=== PATIENT | male | born 1990 | race Caucasian/White ===

== ENCOUNTER 2017-10-15 16:12 | Emergency (ER) | payer BC, OTHER ==
--- NOTE | 2017-10-15 17:07 | RAD ---
LEFT FOOT THREE VIEWS: 10/15/17 HISTORY: Trauma, left foot pain. FINDINGS/IMPRESSION: There is suggestion of fractures involving the distal aspects of the fourth and fifth metatarsals. Cl inical correlation is recommended. POS: ANNMARIE
== END 2017-10-15 18:03 | disposition home or self-care (01) ==
LOC: ERS 16:12
DX: S92.342A Displaced fracture of fourth metatarsal bone, left foot, initial encounter for closed fracture (principal); S92.352A Displaced fracture of fifth metatarsal bone, left foot, initial encounter for closed fracture; F32.9 Major depressive disorder, single episode, unspecified; W11.XXXA Fall on and from ladder, initial encounter

== ENCOUNTER 2017-11-26 01:56 | Emergency (ER) | payer BC ==
[2017-11-26] MEDS ORDERED: Ondansetron ODT 4 MG TAB ONE (02:40)
[2017-11-26 02:52] LABS: #Eosinphils 0.4 thou/uL (0.0-0.7); #Lymphocytes 3.1 thou/uL (1.20-3.40); #Monocytes 0.7 thou/uL (0.11-0.59); #Neutrophils 4.2 thou/uL (1.40-6.50); %Basophils 0.3 % (0.0-1.0); %Eosinophils 4.5 % (0.0-10.0); %Lymphocytes 36.3 % (21.0-51.0); %Monocytes 8.9 % (0.0-10.0); Hemoglobin 15.4 g/dL (14.0-18.0); Mean Corpuscular HGB CONC 35.4 g/dL (32.0-36.0); Mean Corpuscular Hemoglobin 32.6 pg (27.0-31.0); Mean Corpuscular Volume 92.3 fl (80.0-94.0); Mean Platelet Volume 7.5 fL (7.4-10.4); Platelet Count 206 thou/uL (130-400); RBC Distribution Width 12.4 % (11.5-14.5); Red Blood Cell (RBC) Count 4.73 mill/uL (4.70-6.10); White Blood Cell (WBC) Count 8.4 thou/uL (4.8-10.8)
[2017-11-26 03:16] LABS: ALT (SGPT) 53 U/L (8-55); AST (SGOT) 32 U/L (5-34); Albumin 4.8 g/dL (3.5-5.0); Alkaline Phosphatase 60 U/L (40-150); Anion Gap 16 mmol/L (10-20); BUN (Urea Nitrogen) 14 mg/dL (8.9-20.6); Bilirubin, Total 0.7 mg/dL (0.2-1.2); Calc. Creatinine Clearance 0 mL/min (70-130); Calcium 9.7 mg/dL (7.8-10.44); Carbon Dioxide 22 mmol/L (22-29); Chloride 106 mmol/L (98-107); Estimated GFR-MDRD 88; Globulin 3.1 g/dL (2.4-3.5); Glucose 99 mg/dL (70-105); Lipase 32 U/L (8-78); Potassium 3.8 mmol/L (3.5-5.1); Protein, Total 7.9 g/dL (6.0-8.3); Sodium 140 mmol/L (136-145)
[2017-11-26 04:27] LABS: Bilirubin Negative (Negative); Blood, Urine Large (Negative); Clarity CLEAR (Clear); Glucose, Urine (Dipstick) Negative (Negative); Leukocyte Negative (Negative); Nitrite Negative (Negative); Protein, Urine (Dipstick) Negative (Neg-Trace); Specific Gravity, Urine 1.035 (1.002-1.036); Urobilinogen 0.2 mg/dL (0.2-1.0); pH, Urine 6.5 (5.0-9.0)
[2017-11-26 04:30] LABS: Bacteria/HPF None Seen HPF (None Seen); Hyaline Casts/LPF 0-3 HYALINE CAST LPF (0-3 Hyaline); Pathc Cast-AUWi Flag 0.14 (0-2.49); RBC/HPF 21-50 HPF (0-3); Squamous Epithelial None Seen HPF (0-3); WBC/HPF 0-3 HPF (0-3)
[2017-11-26] MEDS ORDERED: Ketorolac Tromethamine 30 MG/ML VIAL ONE (04:54)
--- NOTE | 2017-11-26 10:09 | CT ---
PRELIMINARY REPORT/[facility]/EMERGENTY AFTER-HOURS PROCEDURE CT Abdomen and Pelvis With Intravenous Contrast CLINICAL HISTORY: 27 years old, male; Pain; Abdominal pain; Generalized; Patient HX: M27 presents to ed for abdominal p ain. Upon arrival to examine PT, PT was laying on the floor. PT reports the pain began tonight and wo ke him from his sleep and is in his llq. PT denies allergies to any medications. PT reports some cons tipation, last bm saturday morning. TECHNIQUE: Axial computed tomography images of the abdomen and pelvis with intravenous contrast. Coronal reforma tted images were created and reviewed. COMPARISON: No relevant prior studies available. FINDINGS: Lower thorax: No acute findings. ABDOMEN: Liver: Normal. No mass. Gallbladder and bile ducts: Normal. No calcified stones. No ductal dilation. Pancreas: Normal. No ductal dilation. Spleen: Normal. No splenomegaly. Adrenals: Normal. No mass. Kidneys and ureters: 4 mm proximal left ureteral calculus with mild left hydroureteronephrosis. Left renal cyst in the lower pole Stomach and bowel: Normal. No obstruction. No mucosal thickening. Appendix: Normal. No findings to suggest acute appendicitis. PELVIS: Bladder: Unremarkable as visualized. Reproductive: Unremarkable as visualized. ABDOMEN and PELVIS: Intraperitoneal space: Normal. No free air. No significant fluid collection. Bones/joints: No acute fracture. No dislocation. Soft tissues: Unremarkable. Vasculature: Normal. No abdominal aortic aneurysm. Lymph nodes: Normal. No enlarged lymph nodes. IMPRESSION: Mild left obstructive uropathy secondary to a 4 mm proximal left ureteral calculus Thank you for allowing us to participate in the care of your patient. Dictated and Authenticated by: Gavin Krause MD 11/26/2017 4:40 AM Central Time ([place] & [place]) FINAL REPORT CT ABDOMEN AND PELVIS WITH IV CONTRAST PERFORMED ON AN EMERGENCY BASIS: Date: 11/26/17 Time: 0326 hours HISTORY: Abdomen pain. FINDINGS: Findings agree with the preliminary report by [facility]. There is partial obstruction at a 4.0 mm proximal to mid left ureteral calculus. POS: TPC
[2017-11-26] MEDS ORDERED: ISOVUE-370 76%-LOCM 1 ML ONE (11:20)
== END 2017-11-26 05:13 | disposition home or self-care (01) ==
LOC: ERS 01:56
DX: N13.2 Hydronephrosis with renal and ureteral calculous obstruction (principal); F32.9 Major depressive disorder, single episode, unspecified; F17.200 Nicotine dependence, unspecified, uncomplicated
CPT/HCPCS: 74177; 80053; 81003; 81015; 83690; 85025; 96361; 96374; J1885; J2270; Q0162

== ENCOUNTER 2018-01-23 07:54 | Emergency (ER) | payer BC, OTHER ==
[2018-01-23] MEDS ORDERED: Adacel (T-DAP) 0.5 ML VIAL ONE (08:05)
[2018-01-23] MEDS ORDERED: Ondansetron HCl/PF 4 MG/2 ML Vial ONE (08:09)
--- NOTE | 2018-01-23 08:41 | RAD ---
MIDDLE FINGER LEFT HAND THREE VIEWS: INDICATIONS: Injury to left middle finger with pain. FINDINGS: There is a transverse, mildly displaced fracture involving the distal aspect of the middle phalanx of the third finger. Associated soft tissue swelling. IMPRESSION: Fracture, middle phalanx, third finger, left hand. POS: KAYLYN
[2018-01-23] MEDS ORDERED: CEFAZOLIN/Water 2 GM/20 ML SYRINGE SLOW IVP SCH (08:45)
== END 2018-01-23 10:30 | disposition home or self-care (01) ==
LOC: ERS 07:54
DX: S67.193A Crushing injury of left middle finger, initial encounter (principal); S67.195A Crushing injury of left ring finger, initial encounter; S62.653A Nondisplaced fracture of middle phalanx of left middle finger, initial encounter for closed fracture; S61.213A Laceration without foreign body of left middle finger without damage to nail, initial encounter; S61.215A Laceration without foreign body of left ring finger without damage to nail, initial encounter; F17.210 Nicotine dependence, cigarettes, uncomplicated; F32.9 Major depressive disorder, single episode, unspecified; W31.89XA Contact with other specified machinery, initial encounter; Y99.0 Civilian activity done for income or pay
CPT/HCPCS: 26720; 90471; 90715; 96374; 96375; J2270; J2405

== ENCOUNTER 2018-02-07 11:39 | Day surgery (SDC) | payer OTHER ==
[2018-02-06 15:08] VITALS: BMI 46.2
[2018-02-07] MEDS ORDERED: CEFAZOLIN/Water 2 GM/20 ML SYRINGE ONE (14:19)
[2018-02-07 14:40] LABS: #Eosinphils 0.2 thou/uL (0.0-0.7); #Lymphocytes 2.1 thou/uL (1.20-3.40); #Monocytes 0.5 thou/uL (0.11-0.59); #Neutrophils 4.8 thou/uL (1.40-6.50); %Basophils 0.3 % (0.0-1.0); %Eosinophils 3.2 % (0.0-10.0); %Lymphocytes 27.7 % (21.0-51.0); %Monocytes 6.3 % (0.0-10.0); %Neutrophils 62.5 % (42.0-75.0); Hemoglobin 15.1 g/dL (14.0-18.0); Mean Corpuscular HGB CONC 35.4 g/dL (32.0-36.0); Mean Corpuscular Volume 93.3 fL (78.0-98.0); Mean Platelet Volume 7.3 fL (7.4-10.4); Platelet Count 187 thou/uL (130-400); RBC Distribution Width 12.3 % (11.5-14.5); Red Blood Cell (RBC) Count 4.58 mill/uL (4.70-6.10); White Blood Cell (WBC) Count 7.7 thou/uL (4.8-10.8)
[2018-02-07] MEDS ORDERED: Bacitracin Zinc Ointment 30 gm TUBE ONE (14:44)
[2018-02-07] MEDS ORDERED: Sodium Chloride 0.9% 10 ML ONE (14:44)
[2018-02-07] MEDS ORDERED: Bupivacaine PF 0.5% 30 ML VIAL ONE (14:44)
[2018-02-07] MEDS ORDERED: Fentanyl 100 MCG/2 ML VIAL ONE ×2 (14:46→16:47)
[2018-02-07] MEDS ORDERED: Midazolam HCl 2 mg/2 ml Vial ONE (14:46)
[2018-02-07] MEDS ORDERED: Famotidine/PF 20 mg/2ml Vial ONE (15:05)
[2018-02-07] MEDS ORDERED: Lidocaine 1% PF 5 ML VIAL ONE (15:11)
[2018-02-07] MEDS ORDERED: PROPOFOL 200 MG/20 ML VIAL ONE (15:11)
[2018-02-07] MEDS ORDERED: Ondansetron HCl/PF 4 MG/2 ML Vial ONE (15:11)
[2018-02-07] MEDS ORDERED: Ketorolac Tromethamine 30 MG/ML VIAL ONE ×2 (15:11→16:53)
--- NOTE | 2018-02-07 16:36 | RAD ---
EXAM: INTRAOPERATIVE FLUOROSCOPY 02/07/18 HISTORY: Fracture to the left hand fingers. COMPARISON: None. FINDINGS: Two intraoperative fluoroscopic views demonstrate K-wires through the middle phalanx of what is presu med to be the third and fourth digit. IMPRESSION: Fluoroscopy as above. POS: KAYLYN
[2018-02-07] MEDS ORDERED: HYDROcodone/Acetaminophen 5/325 mg Tablet ONE (18:02)
--- NOTE | 2018-02-08 00:27 | OP ---
PREOPERATIVE DIAGNOSES: Left middle finger and ring finger middle phalanx displaced fractures. POSTOPERATIVE DIAGNOSES: Left middle finger and ring finger middle phalanx displaced fractures. PROCEDURES PERFORMED: 1. Closed reduction and percutaneous pinning of left middle finger middle phalanx intra-articular fr acture. 2. Closed reduction and pinning of left ring finger middle phalanx intra-articular fracture. 3. C-arm supervision. SURGEON: Juan Luis Toro MD ANESTHESIA: General, LMA augmented by 20 mL total of 0.5% Marcaine block at both the digits listed a justice intraoperatively by surgeon, Juan Luis Toro MD. FINDINGS: Displaced at both sites with the long finger having the most malrotation and 2-plane abnor mality. INDICATIONS: Fall in a person who is an active worker at [employer] [employer] [facility] [employer]. DESCRIPTION OF PROCEDURE: After successful general LMA technique, the limb was prepped and draped. C-arm was brought into the field. A time-out was done appropriately. We then performed closed reduc tion, which was anatomic in both sides. First, the least deformed ring finger was pinned x2 with one 0.45 and then a second 0.35 K-wire. Then, using advanced reduction techniques to include temporary pin and with the joint flexed to reduce the sagittal plane deformity to nearly anatomic, we then pass ed 0.35 K-wires across this fracture and kept in anatomic position. Rotation was excellent in both, and there was no visible deformity, and the joints were free to move. The patient had the wires cut slightly below the skin. Bacitracin and Adaptic dressing applied with finger tube gauze and a mallet finger splint for each digit separately, and the patient left the oper ating room without evidence of anesthetic or operative complication.
== END 2018-02-07 18:20 | disposition home or self-care (01) ==
LOC: SDC 11:39
PROVIDERS: ATTEND Orthopaedic Surgery Hand Surgery
DX: S62.623A Displaced fracture of middle phalanx of left middle finger, initial encounter for closed fracture (principal); S62.625A Displaced fracture of middle phalanx of left ring finger, initial encounter for closed fracture; F32.9 Major depressive disorder, single episode, unspecified; F17.210 Nicotine dependence, cigarettes, uncomplicated; E66.9 Obesity, unspecified; Z68.42 Body mass index [BMI] 45.0-49.9, adult; W31.82XA Contact with other commercial machinery, initial encounter; Y99.0 Civilian activity done for income or pay
CPT/HCPCS: 36415; 76001; 85025; 96372; 96374; A4216; J1885; J2001; J2250; J2405; J2704; J3010; J3490; S0020; S0028

== ENCOUNTER 2018-02-14 03:49 | Inpatient (IN) | payer BC, OTHER ==
[2018-02-14 04:34] LABS: #Eosinphils 0.2 thou/uL (0.0-0.7); #Lymphocytes 1.9 thou/uL (1.20-3.40); #Monocytes 0.8 thou/uL (0.11-0.59); #Neutrophils 4.1 thou/uL (1.40-6.50); %Basophils 0.4 % (0.0-1.0); %Eosinophils 2.6 % (0.0-10.0); %Lymphocytes 26.7 % (21.0-51.0); %Monocytes 11.3 % (0.0-10.0); Hemoglobin 15.5 g/dL (14.0-18.0); Mean Corpuscular HGB CONC 36.2 g/dL (32.0-36.0); Mean Corpuscular Hemoglobin 33.3 pg (27.0-31.0); Mean Corpuscular Volume 92.2 fL (78.0-98.0); Mean Platelet Volume 7.3 fL (7.4-10.4); Platelet Count 153 thou/uL (130-400); RBC Distribution Width 12.1 % (11.5-14.5); Red Blood Cell (RBC) Count 4.64 mill/uL (4.70-6.10); White Blood Cell (WBC) Count 6.9 thou/uL (4.8-10.8)
[2018-02-14 05:17] LABS: ALT (SGPT) 58 U/L (8-55); AST (SGOT) 32 U/L (5-34); Albumin 4.7 g/dL (3.5-5.0); Alkaline Phosphatase 48 U/L (40-150); Anion Gap 18 mmol/L (10-20); BUN (Urea Nitrogen) 30 mg/dL (8.9-20.6); Bilirubin, Total 0.6 mg/dL (0.2-1.2); Calc. Creatinine Clearance 0 mL/min (70-130); Calcium 9.7 mg/dL (7.8-10.44); Carbon Dioxide 21 mmol/L (22-29); Chloride 102 mmol/L (98-107); Estimated GFR-MDRD 31; Globulin 3.6 g/dL (2.4-3.5); Glucose 101 mg/dL (70-105); Lipase 42 U/L (8-78); Magnesium 2.3 mg/dL (1.6-2.6); Potassium 4.4 mmol/L (3.5-5.1); Protein, Total 8.3 g/dL (6.0-8.3); Sodium 137 mmol/L (136-145)
[2018-02-14 06:09] LABS: Bilirubin Negative (Negative); Blood, Urine Large (Negative); Clarity CLOUDY (Clear); Glucose, Urine (Dipstick) Negative (Negative); Leukocyte Negative (Negative); Nitrite Negative (Negative); Protein, Urine (Dipstick) 30 mg/dL (Neg-Trace); Specific Gravity, Urine 1.008 (1.002-1.036); Urobilinogen 0.2 mg/dL (0.2-1.0)
[2018-02-14 06:12] LABS: Bacteria/HPF None Seen HPF (None Seen); Hyaline Casts/LPF 0-3 HYALINE CAST LPF (0-3 Hyaline); Pathc Cast-AUWi Flag 0.14 (0-2.49); Squamous Epithelial None Seen HPF (0-3); WBC/HPF 0-3 HPF (0-3)
[2018-02-14 06:12] LABS: Hemoglobin A1c 4.8 % (4.0-6.0)
[2018-02-14] MEDS ORDERED: Ondansetron HCl/PF 4 MG/2 ML Vial ONE (06:17)
[2018-02-14 06:22] LABS: Creatinine, Urine 78.58 mg/dL (63-166)
[2018-02-14] MEDS ORDERED: Zolpidem Tartrate 5 MG TAB PO PRN (08:18)
[2018-02-14] MEDS ORDERED: Chloraseptic Spray 180 ml Bottle PO PRN (08:18)
[2018-02-14] MEDS ORDERED: Acetaminophen 325 MG TAB PO PRN (08:18)
[2018-02-14] MEDS ORDERED: Diabetic Tussin 200 MG/10 ML UDCUP PO PRN (08:18)
[2018-02-14] MEDS ORDERED: Artificial Tear Sol 15 ML BOT EA EYE PRN (08:18)
[2018-02-14] MEDS ORDERED: Milk Of Magnesia 30 ML UDCUP PO PRN (08:18)
[2018-02-14] MEDS ORDERED: Ondansetron ODT 4 MG TAB PO PRN (08:18)
[2018-02-14] MEDS ORDERED: HYDROcodone/Acetaminophen 5/325 mg Tablet PO PRN (08:18)
[2018-02-14] MEDS ORDERED: Ondansetron HCl/PF 4 MG/2 ML Vial IVP PRN (08:18)
[2018-02-14] MEDS ORDERED: Senokot 8.6 MG TAB PO PRN (08:18)
[2018-02-14] MEDS ORDERED: Eucerin (Mineral Oil/Petrolatum,White) 30 gm Jar TOP PRN (08:18)
[2018-02-14] MEDS ORDERED: Loperamide HCl 2 MG CAP PO PRN (08:18)
[2018-02-14] MEDS ORDERED: Loratadine 10 MG TAB PO PRN (08:18)
[2018-02-14] MEDS ORDERED: Sodium Chloride 0.65% Nasal 44 ML BOT EA NARE PRN (08:18)
[2018-02-14] MEDS: Sodium Chloride 0.9% 1,000 ML IV SCH ×3 (08:51→20:35)
[2018-02-14] MEDS: Heparin 5,000 UNITS/ML VIAL SC SCH ×2 (08:51→20:29)
[2018-02-14] MEDS ORDERED: Famotidine/PF 20 mg/2ml Vial SLOW IVP SCH (09:00)
[2018-02-14 09:14] VITALS: BMI 47.5
[2018-02-14 10:31] LABS: Bilirubin Negative (Negative); Blood, Urine Large (Negative); Clarity CLEAR (Clear); Glucose, Urine (Dipstick) Negative (Negative); Leukocyte Negative (Negative); Nitrite Negative (Negative); Protein, Urine (Dipstick) Negative (Neg-Trace); Specific Gravity, Urine 1.006 (1.002-1.036); Urobilinogen 0.2 mg/dL (0.2-1.0)
[2018-02-14 10:34] LABS: Bacteria/HPF None Seen HPF (None Seen); Hyaline Casts/LPF 0-3 HYALINE CAST LPF (0-3 Hyaline); Pathc Cast-AUWi Flag 0.14 (0-2.49); Squamous Epithelial None Seen HPF (0-3); WBC/HPF 0-3 HPF (0-3)
--- NOTE | 2018-02-14 10:57 | HP ---
PRIMARY CARE PHYSICIAN: Dr. Robin Reynolds DATE OF ADMISSION: 02/14/2018 REASON FOR ADMISSION: Acute kidney failure. HISTORY OF PRESENT ILLNESS: A 27-year-old male who has underlying morbid obesity as well as history of ureterolithiasis. He came to emergency room with complaint of nausea, vomiting, epigastric abdomi nal pain. The patient reports that on 02/07/2018 the patient had closed reduction and percutaneous p inning of left middle finger as well as left ring finger. The patient was discharged on the same day . At that time for pain medication the patient was given prescription for ibuprofen 800 mg 3 times d aily. The patient was taking that medication at home for 4 days and subsequently the patient stopped taking those medication because he was experiencing side effects with epigastric pain. He was havin g nausea and intermittent vomiting. He also had black stool, but he attributes it to be due to Pepto -Bismol which he took before black stool. He was not tolerating p.o. well, but he was drinking a nor mal amount of liquid. He was feeling weak and dizzy and that is why he came to emergency room for ev aluation today. In the emergency room, routine blood tests showed creatinine 2.55. The patient repo rts that in November he was having ureteric colic and that is why he came to emergency room, at that poin t, he had CT of the abdomen and pelvis with contrast which showed 4 mm stone in left ureteral calculu s. He did not require any intervention. He never had any kidney problem before. This time he denie s any ureteric colic. He denies any suprapubic pain. He denies any fever or chills. He denies any UTI symptoms. His urine is clean. The patient was given Keflex after surgical procedure. The patie nt already has known history of gastroesophageal reflux disease, but he controls reflux symptoms with modification of diet. REVIEW OF SYSTEMS: The following complete review of systems was negative, unless otherwise mentioned in the HPI or below: Constitutional: Weight loss or gain, ability to conduct usual activities. Skin: Rash, itching. Eyes: Double vision, pain. ENT/Mouth: Nose bleeding, neck stiffness, pain, tenderness. Cardiovascular: Palpitations, dyspnea on exertion, orthopnea. Respiratory: Shortness of breath, wheezing, cough, hemoptysis, fever or night sweats. Gastrointestinal: Poor appetite, abdominal pain, heartburn, nausea, vomiting, constipation, or diarrhea. Genitourinary: Urgency, frequency, dysuria, nocturia. Musculoskeletal: Pain, swelling. Neurologic/Psychiatric: Anxiety, depression. Allergy/Immunologic: Skin rash, bleeding tendency. Please see my HPI for pertinent positive and negative. All other review of systems reviewed and nega tive except as mentioned in the HPI. ALLERGIES: No known drug allergy. CURRENT HOME MEDICATIONS: Keflex 500 mg twice daily, ibuprofen 800 mg q.8h. p.r.n., [place] 5 one or t wo tablets q.6 hourly p.r.n. PAST MEDICAL HISTORY: History of ureterolithiasis, morbid obesity, gastroesophageal reflux disease. PAST SURGICAL HISTORY: The patient had tympanic tube placement in the ear, sinus surgery, patient kirby d left hand surgery with a closed reduction and percutaneous pinning of left middle finger and left r ing finger. SOCIAL HISTORY: The patient smokes occasionally on weekends. He drinks alcohol socially. He denies any other illicit drug abuse. FAMILY HISTORY: No strong family history of premature coronary artery disease, stroke or cancer. EMERGENCY ROOM COURSE: The patient was given 2 liters of IV fluid, Zofran 4 mg. PHYSICAL EXAMINATION: VITAL SIGNS: On arrival, blood pressure 163/90, pulse 113, respiratory rate 18, temperature 98.8, sa turation 96% on room air, weight 163.3 kilograms. GENERAL: The patient is currently alert, awake, no obvious acute distress. HEENT: Head normocephalic, atraumatic. Eyes: Pupils round, reactive to light. Extraocular muscle intact. ENT: Oropharynx within normal limits. Moist mucous membrane, no oral lesion, no pharyngeal erythema, no exudate. NECK: Supple, no JVD, no thyromegaly, no carotid bruit. LUNGS: Clear to auscultation without any rhonchi or rales. CARDIAC: S1, S2 regular. No murmur, no gallop, no rub. ABDOMEN: Patient does have epigastric discomfort, but no peritoneal sign, no guarding, no rigidity, no rebound, no suprapubic tenderness. BACK: Unremarkable, no CVA tenderness. EXTREMITIES: Upper extremity passive movement of all joints are normal. Lower extremities: No jeet a. Good distal pulsation. The patient's left index finger and ring finger is covered with a dressin g. NEUROLOGIC: Nonfocal examination. SIGNIFICANT LABORATORY DATA: CBC: WBC 6.9, hemoglobin 15.5, platelet 153. BMP shows sodium 137, po tassium 4.4, chloride 102, carbon dioxide 21, anion gap 18, BUN 30, creatinine 2.55, glucose 101, fadia cium 9.7. Hemoglobin A1c 4.8, magnesium 2.3. LFT: AST 32, ALT 58, alkaline phosphatase 48, albumin 4.7, lipase 42. Urinalysis; protein and blood large, RBC 7-10. Urine creatinine 78.58, urea nitrog en 406. ASSESSMENT AND PLAN: 1. Acute kidney failure. At this point, etiology is mixed. The patient had contrast exposure in [place], he had a surgery 1 week ago. It is uncertain whether he was given any Toradol perioperatively, b ut patient was taking ibuprofen high dose for 4 days. The patient was also not able to drink enough liquid and food and that is why dehydration is also a possibility. His urinalysis showing blood larg e, but RBC only 7-10, so associated rhabdomyolysis cannot be entirely excluded. At this point, we wi ll check total CK. The patient will need IV fluid with normal saline 125 mL per hour. We will obtai n renal ultrasound to rule out any hydronephrosis given previous history of ureterolithiasis. We carina l check urine protein and urine creatinine as well as urine sodium. We will avoid nephrotoxin agent. We will monitor renal function. If renal function does not improve, then we will consider nephrolo gy evaluation. 2. Epigastric abdominal pain, suspecting clinically from NSAID induced gastritis. At this point, th e patient reported black stool, but it was related with Pepto-Bismol. We will check stool for guaiac and if it is positive, then will consider GI evaluation. We will treat him with Protonix 40 mg IV t wice daily, Carafate 1 gram p.o. before meals and at bedtime. At this point, the patient does not kirby ve any alarming features requiring GI consultation. The patient will get better with proton pump inh ibitor and avoidance of NSAID which was discussed with the patient's family member. 3. Morbid obesity with BMI of 47. Dietary education given, weight loss education given. Healthy li festyle measures discussed with the patient. 4. Gastroesophageal reflux disease. We will continue Protonix 40 mg IV b.i.d. 5. Deep venous thrombosis prophylaxis, heparin 5000 units subcu twice daily. 6. Gastrointestinal prophylaxis, Protonix 40 mg b.i.d. CODE STATUS: The patient is full code. Disposition plan based on clinical course. Plan of care discussed with the patient and his mother at bedside.
[2018-02-14 11:12] LABS: Protein, Urine Random Quant 19 mg/dL (1-14); Sodium, Urine 53 mmol/L (Not Available)
[2018-02-14] MEDS: Sucralfate 1 GM TAB PO SCH ×3 (11:59→20:29)
[2018-02-14 12:29] LABS: Anion Gap 12 mmol/L (10-20); BUN (Urea Nitrogen) 29 mg/dL (8.9-20.6); Calc. Creatinine Clearance 108 mL/min (70-130); Calcium 8.7 mg/dL (7.8-10.44); Carbon Dioxide 23 mmol/L (22-29); Chloride 105 mmol/L (98-107); Estimated GFR-MDRD 33; Glucose 109 mg/dL (70-105); Potassium 4.1 mmol/L (3.5-5.1); Sodium 136 mmol/L (136-145)
--- NOTE | 2018-02-14 13:27 | ULT ---
RENAL SONOGRAM: DATE: 02/14/18. HISTORY: Acute renal failure. FINDINGS: The right kidney demonstrates a normal sonographic appearance without renal mass, renal calculus, or hydronephrosis. The right kidney measures 12.2 cm x 7.8 cm. The left kidney measures 12.1 cm x 7.6 cm. Mild left hydronephrosis is present on the left. A small 1.4 cm anechoic lesion is seen in the inferior pole left kidney which was also seen on the recent CT scan exam and demonstrates characteristics most suggestive of a cyst. There is an echogenic area se en at the dependent portion of this cystic lesion also seen on the CT scan likely related to small ca lcifications and could potentially represent calcification layering dependently within the cyst. The urinary bladder is incompletely distended or well evaluated on this exam. Imaging of the urinary bladder with color flow evaluation does demonstrate left ureteral jet. IMPRESSION: 1. Mild left-sided hydronephrosis of uncertain etiology. This is also present on CT scan exam and, on that examination, there was an approximately 4 mm proximal left ureteral calculus visualized. 2. Left renal cyst with calcification either along the wall or dependently within the cyst. 3. Normal appearance of the right kidney without evidence of hydronephrosis. POS: ANNMARIE
--- NOTE | 2018-02-14 14:12 | CON ---
DATE OF CONSULTATION: 02/14/2018 REASON FOR CONSULTATION: Elevated creatinine. HISTORY OF PRESENT ILLNESS: This is a very pleasant 27-year-old gentleman who presented to the [facility] with acute renal failure. The patient has had history of kidney stone and urolithiasis. The pat ient denies headache, numbness, tingling or weakness. Denies any nausea, vomiting or chest pain. Th e patient's creatinine was less than 1 and has increased to 2.5. PAST MEDICAL HISTORY: Significant for kidney stones, morbid obesity, GERD, tympanic . FAMILY HISTORY: Negative for ESRD. ALLERGIES: Reviewed. HOME MEDICATIONS: Reviewed. REVIEW OF SYSTEMS: A 15-point review of systems was performed and negative except all noted above. GENERAL: Weakness- HEAD: Headache- NECK: No swelling or lumps. NOSE: No epistaxis or discharge. EYES: No diplopia or pain. 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 NEUROPSYCHIATIC SYSTEMS: No suicidal ideation. No ideation. SKIN: Denies any rash or ulcer. CONSTITUTIONAL: No fever or chills. PHYSICAL EXAMINATION: GENERAL: Patient is awake, alert. VITAL SIGNS: Afebrile, pulse 113, breathing 16, blood pressure 162/90. GENERAL APPEARANCE AND MENTAL STATUS: Fair. HEAD/NECK: Normocephalic. Atraumatic. EYES: EOMI. No deformity. EARS: Clear. No ulcers. NOSE: Intact. No lesions. MOUTH: Clear. No discharge. THROAT: Clear. No exudate. LUNGS: Clear. No crackles. CARDIAC: S1, S2. No rub. ABDOMEN: Benign. BS+. GENITALIA/RECTUM: Mccray absent. BACK/EXTREMITIES: Edema 0+ Ulcer- NEUROLOGICAL: Alert and motor intact. SKIN: Rash- Bruise- LYMPHATICS: Edema- Ulcer- LABORATORY: Creatinine 2.5. ASSESSMENT AND RECOMMENDATIONS: 1. Acute kidney injury with chronic kidney disease stage 3, most likely because of dehydration. Ord er imaging has done. 2. Hematuria most likely because of kidney stone. 3. Anemia, stable. 4. Medication based on glomerular filtration rate are appropriate. Would recommend aggressive hydration and recheck labs. No indication for dialysis at this time.
[2018-02-14] MEDS: Mag-Al 1200 mg/1200 mg/30 ML UDCUP PO PRN (18:42)
[2018-02-14] MEDS: Cephalexin 250 MG CAP PO SCH (20:28)
[2018-02-14] MEDS: Pantoprazole 40 MG VIAL IVP SCH (20:29)
[2018-02-15] MEDS: Mag-Al 1200 mg/1200 mg/30 ML UDCUP PO PRN ×2 (00:41→10:03)
[2018-02-15 04:22] LABS: #Eosinphils 0.2 thou/uL (0.0-0.7); #Lymphocytes 1.8 thou/uL (1.20-3.40); #Monocytes 0.5 thou/uL (0.11-0.59); #Neutrophils 2.5 thou/uL (1.40-6.50); %Basophils 0.2 % (0.0-1.0); %Eosinophils 3.3 % (0.0-10.0); %Lymphocytes 35.4 % (21.0-51.0); %Monocytes 10.3 % (0.0-10.0); %Neutrophils 50.9 % (42.0-75.0); Hemoglobin 13.7 g/dL (14.0-18.0); Mean Corpuscular HGB CONC 36.2 g/dL (32.0-36.0); Mean Corpuscular Hemoglobin 33.4 pg (27.0-31.0); Mean Corpuscular Volume 92.3 fL (78.0-98.0); Mean Platelet Volume 7.7 fL (7.4-10.4); Platelet Count 126 thou/uL (130-400); Red Blood Cell (RBC) Count 4.09 mill/uL (4.70-6.10)
[2018-02-15 04:38] LABS: ALT (SGPT) 53 U/L (8-55); AST (SGOT) 26 U/L (5-34); Albumin 4.2 g/dL (3.5-5.0); Alkaline Phosphatase 45 U/L (40-150); Anion Gap 15 mmol/L (10-20); BUN (Urea Nitrogen) 25 mg/dL (8.9-20.6); Bilirubin, Total 0.4 mg/dL (0.2-1.2); Calc. Creatinine Clearance 110 mL/min (70-130); Calcium 8.7 mg/dL (7.8-10.44); Carbon Dioxide 23 mmol/L (22-29); Chloride 107 mmol/L (98-107); Estimated GFR-MDRD 34; Glucose 88 mg/dL (70-105); Potassium 4.3 mmol/L (3.5-5.1); Protein, Total 7.2 g/dL (6.0-8.3); Sodium 141 mmol/L (136-145)
[2018-02-15] MEDS: hydrALAZINE 20 MG/ML VIAL SLOW IVP PRN ×2 (04:41→16:49)
[2018-02-15] MEDS: Sucralfate 1 GM TAB PO SCH ×4 (08:30→20:40)
[2018-02-15] MEDS: Pantoprazole 40 MG VIAL IVP SCH ×2 (10:03→20:41)
[2018-02-15] MEDS: Heparin 5,000 UNITS/ML VIAL SC SCH ×2 (10:08→20:39)
--- NOTE | 2018-02-15 11:05 | PDOC.PN ---
- Subjective Encounter Start Date: 02/15/18 Encounter Start Time: 09:50 -: old records requested/rev Patient seen and examined. No new complaints. No overnight events denies any flank pain, he has mild epigastric discomfort, no vomiting - Objective Resuscitation Status: Resuscitation Status FULL:Full Resuscitation MAR Reviewed: Yes Vital Signs & Weight: Vital Signs (12 hours) Temp Pulse Resp BP Pulse Ox 02/15/18 08:00 98.6 F 76 16 96 02/15/18 07:37 98.6 F 76 16 142/83 H 96 02/15/18 05:45 167/80 H 02/15/18 04:41 83 02/15/18 04:28 98.3 F 83 18 93 L 02/15/18 00:32 98.1 F 83 18 174/89 H 95 Weight Weight 360 lb 5 oz I&O: 02/14/18 02/15/18 02/16/18 06:59 06:59 06:59 Intake Total 3494 Output Total 2130 Balance 1364 Result Diagrams: 02/15/18 03:21 02/15/18 03:21 Radiology Reviewed by me: Yes (renal US noted) Phys Exam - Physical Examination Constitutional: NAD HEENT: PERRLA, moist MMs, sclera anicteric Neck: no JVD, supple Respiratory: no wheezing, no rales, no rhonchi Cardiovascular: RRR, no significant murmur, no rub Gastrointestinal: soft, non-tender, no distention, positive bowel sounds morbid obesity+ Musculoskeletal: no edema, pulses present Neurological: non-focal, normal sensation, moves all 4 limbs Psychiatric: normal affect, A&O x 3 Skin: no rash, normal turgor Dx/Plan (1) Acute kidney failure Status: Acute Comment: slight improvement today (2) Hydronephrosis, left Code(s): N13.30 - UNSPECIFIED HYDRONEPHROSIS Status: Acute Comment: mild (3) Microscopic hematuria Code(s): R31.29 - OTHER MICROSCOPIC HEMATURIA Status: Acute (4) NSAID induced gastritis Code(s): K29.60 - OTHER GASTRITIS WITHOUT BLEEDING; T39.395A - ADVERSE EFFECT OF NONSTEROIDAL ANTI-INFLAMMATORY DRUGS, INIT Status: Acute (5) GERD (gastroesophageal reflux disease) Code(s): K21.9 - GASTRO-ESOPHAGEAL REFLUX DISEASE WITHOUT ESOPHAGITIS Status: Chronic (6) Morbid obesity with BMI of 45.0-49.9, adult Code(s): E66.01 - MORBID (SEVERE) OBESITY DUE TO EXCESS CALORIES; Z68.42 - BODY MASS INDEX (BMI) 45.0-49.9, ADULT Status: Chronic (7) Ureterolithiasis Code(s): N20.1 - CALCULUS OF URETER Status: Chronic - Plan cont current plan of care, plan discussed w/ family * as pt had ureterolithiasis and mild hydronephrosis, will consult urology for their opinion * continue PPI for gastritis * continue IVF * nephrology following * medication reviewed as below * symptomatic treatment * repeat labs tomorrow. * discussed with mother bedside Review of Systems - Review of Systems Eyes: negative: Pain, Vision Change, Conjunctivae Inflammation, Eyelid Inflammation, Redness, Other ENT: negative: Ear Pain, Ear Discharge, Nose Pain, Nose Discharge, Nose Congestion, Mouth Pain, Mouth Swelling, Throat Pain, Throat Swelling, Other Respiratory: negative: Cough, Dry, Shortness of Breath, Hemoptysis, SOB with Excertion, Pleuritic Pain, Sputum, Wheezing Cardiovascular: negative: chest pain, palpitations, orthopnea, paroxysmal nocturnal dyspnea, edema, light headedness, other Gastrointestinal: negative: Nausea, Vomiting, Abdominal Pain, Diarrhea, Constipation, Melena, Hematochezia, Other Genitourinary: negative: Dysuria, Frequency, Incontinence, Hematuria, Retention , Other Musculoskeletal: negative: Neck Pain, Shoulder Pain, Arm Pain, Back Pain, Hand Pain, Leg Pain, Foot Pain, Other Skin: negative: Rash, Lesions, José Antonio, Bruising, Other - Medications/Allergies Allergies/Adverse Reactions: Allergies Allergy/AdvReac Type Severity Reaction Status Date / Time No Known Allergies Allergy Verified 02/06/18 14:45 Medications: Current Medications Acetaminophen (Tylenol) 650 mg PO Q4H PRN PRN Reason: Headache/Fever or Pain Hydrocodone Bitart/Acetaminophen (Athelstane 5/325) 1 tab PO Q4H PRN PRN Reason: Moderate Pain (4-6) Al Hydroxide/Mg Hydroxide (Maalox) 30 ml PO Q6H PRN PRN Reason: Heartburn or Indigestion Last Admin: 02/15/18 10:03 Dose: 30 ml Artificial Tears (Tears Renewed 15ml Bottle) 0 drop EA EYE PRN PRN PRN Reason: Dry Eyes Cephalexin (Keflex) 500 mg PO BID [facility] Last Admin: 02/14/18 20:28 Dose: 500 mg Guaifenesin (Robitussin Sf) 200 mg PO Q4H PRN PRN Reason: Cough Heparin Sodium (Porcine) (Heparin) 5,000 units SC BID [facility] Last Admin: 02/15/18 10:08 Dose: Not Given Hydralazine HCl (Apresoline) 10 mg SLOW IVP Q4H PRN PRN Reason: Systolic BP > 180 Last Admin: 02/15/18 04:41 Dose: 10 mg Sodium Chloride (Normal Saline 0.9%) 1,000 mls @ 125 mls/hr IV .Q8H [facility] Last Admin: 02/14/18 20:35 Dose: 1,000 mls Loperamide HCl (Imodium) 2 mg PO PRN PRN PRN Reason: Diarrhea/Loose Stools Loratadine (Claritin) 10 mg PO DAILYPRN PRN PRN Reason: Sinus Symptoms Magnesium Hydroxide (Milk Of Magnesium) 30 ml PO DAILYPRN PRN PRN Reason: Constipation Mineral Oil/White Petrolatum (Eucerin Cream) 0 gm TOP BIDPRN PRN PRN Reason: Dry Skin Ondansetron HCl (Zofran Odt) 4 mg PO Q6H PRN PRN Reason: Nausea/Vomiting Ondansetron HCl (Zofran) 4 mg IVP Q6H PRN PRN Reason: Nausea/Vomiting Last Admin: 02/14/18 20:23 Dose: 4 mg Pantoprazole Sodium (Protonix) 40 mg IVP Q12HR [facility] Last Admin: 02/15/18 10:03 Dose: 40 mg Phenol (Chloraseptic [place] 180 Ml Bot) 0 ml PO PRN PRN PRN Reason: Sore Throat Senna (Senokot) 2 tab PO HSPRN PRN PRN Reason: Constipation Sodium Chloride ([place] Nasal [place] 0.65%) 0 ml EA NARE QIDPRN PRN PRN Reason: Nasal Congestion Sucralfate (Carafate) 1 gm PO [facility] Last Admin: 02/15/18 08:30 Dose: Not Given Zolpidem Tartrate (Ambien) 5 mg PO HSPRN PRN PRN Reason: Insomnia
[2018-02-15] MEDS: Cephalexin 250 MG CAP PO SCH ×2 (12:46→20:40)
--- NOTE | 2018-02-15 13:01 | CON ---
DATE OF CONSULTATION: 02/15/2018 PRIMARY CARE PHYSICIAN: Dr. Robin Reynolds. REASON FOR REFERRAL: Acute renal insufficiency, history of urolithiasis. HISTORY OF PRESENT ILLNESS: Mr. Langston is a pleasant 27-year-old male who is present with his mother at bedside. The patient has a history of morbid obesity , works at [employer], making wine. He sustained a finger injury and underwent surgery by Dr. Toro, closed reduction of his ring finger recently on 02/07/2018. The patient does not like to take medications, no narcotics. Therefore, he was taking Motrin 800 mg every 8 hours for 3-4 days. He is currently admitted complaining of nausea, epigastric abdominal discomfort, presented with renal insufficiency from baseline creatinine of 0.1-1.02, creatinine of 2.5. The patient was admitted to medical service, Nephrology was consulted. A renal ultrasound was obtained demonstrating mild left hydronephrosis. He did present to the emergency room back in 11/26/2017, there was a 4 mm proximal ureteral calculi with mild hydronephrosis. Right kidney is grossly unremarkable. Incidental left lower pole cyst. He states that he was never provided an appointment with Urology. He has had vague left lower quadrant abdominal discomfort not significantly bothersome. However, it has been present intermittently. He denies gross hematuria. Denies constipation. In the last day or so, he has had vague right mid epigastric abdominal discomfort as well. He does not characterize this is pain, minimal discomfort not requiring pain medication. Denies gross hematuria. He denies obstructive urinary symptoms. PAST MEDICAL HISTORY: Left ureteral calculi diagnosed 11/2017 in the ER, morbid obesity, GERD, recent trauma to the digits at work. PAST SURGICAL HISTORY: Tympanic tube placement, left hand surgery, closed reduction and percutaneous pinning of the left middle finger and ring finger by Dr. Toro, 02/07/2018. SOCIAL HISTORY: Occasionally smokes tobacco. Occasional alcohol socially. Denies illicit drug use. FAMILY HISTORY: Negative. PHYSICAL EXAMINATION: VITAL SIGNS: Stable 98.6, 76, 16, 96, 142/83. I's and O's are 3494 in, 2130 out. GENERAL: The patient appears to be in no acute distress. HEENT: Unremarkable. HEART: Regular rate. LUNGS: Clear. ABDOMEN: Soft, morbid obesity. There is no gross CVA tenderness, no rigidity, no rebound. GENITOURINARY: Circumcised phallus. Testes are descended with no evidence of intratesticular mass. EXTREMITIES: No cyanosis, clubbing or edema. PERTINENT LABORATORY DATA AND IMAGING: White count 5, hemoglobin 13, platelet 126. Baseline creatinine 0.9-1.0, he presented on 02/14/2018 with creatinine of 2.5-2.4. Repeat creatinine this morning is 2.3. Urinalysis demonstrates large blood, 11-20 RBCs, yellow color. On initial presentation, had 30 protein , repeat urine does not, 11-20 RBCs. Urine culture has not been ordered, therefore, it was ordered this morning by myself. PERTINENT IMAGING: Renal ultrasound on 02/14/2018 demonstrates mild left hydronephrosis, unclear etiology, left renal cyst with either calcification along the wall or dependently within the cysts, normal appearing right kidney without evidence of right hydronephrosis. CT of the abdomen and pelvis with contrast on 11/26/2017 showed right kidney unremarkable, 4 mm left proximal ureteral calculi with mild left hydronephrosis , left lower pole renal cyst, per my review, left ureteral calculi is located at about L3-L4 level. IMPRESSION AND PLAN: Mr. Langston is a 27-year-old male who presented to the emergency room on 11/2017 due to left flank pain and found to have small left proximal ureteral calculi at the level of L3 ureter. 1. Recent orthopedic surgery requiring postop pain medication of ibuprofen, which resulted in acute renal insufficiency. 2. Mild left hydronephrosis r/o persistent stone nidus. 3. Acute renal insufficiency is likely multifactorial. We will obtain CT stone protocol to be stage. Informed mother and patient that if there is persistent stone nidus, we would advise regarding consideration of left ureteral stent placement. Avoid nephrotoxic medications, urine culture pending. Further recommendations following repeat CT scan for staging. Continue IV fluids. MTDD
--- NOTE | 2018-02-15 13:17 | PRG ---
DATE OF SERVICE: 02/15/2018 SUBJECTIVE: This is a 27-year-old gentleman being seen for acute kidney injury. The patient denies any nausea, vomiting, or chest pain. PHYSICAL EXAMINATION: GENERAL: Patient is awake, alert. VITAL SIGNS: Afebrile, pulse 71, breathing 16, blood pressure 142/83. HEAD/NECK: Normocephalic. Atraumatic. EYES: EOMI. No deformity. EARS: Clear. No ulcers. NOSE: Intact. No lesions. MOUTH: Clear. No discharge. THROAT: Clear. No exudate. LUNGS: Clear. No crackles. CARDIAC: S1, S2. No rub. ABDOMEN: Benign. BS+. GENITALIA/RECTUM: Mccray absent. BACK/EXTREMITIES: Edema 0+ Ulcer- NEUROLOGICAL: Alert and motor intact. SKIN: Rash- Bruise- LYMPHATICS: Edema- Ulcer- LABORATORY DATA: Show hemoglobin 13.7 and proteinuria less than 200 mg . ASSESSMENT AND RECOMMENDATIONS: 1. Acute kidney injury with chronic kidney disease, most likely because of obstructive uropathy, no evidence of intrinsic disease. 2. Hypertension, stable. 3. Medications based on glomerular filtration rate are appropriate. 4. Anemia, stable.
--- NOTE | 2018-02-15 14:29 | CT ---
CT OF ABDOMEN AND PELVIS PERFORMED WITHOUT CONTRAST ENHANCEMENT: Date: 02/15/18 HISTORY: Acute renal insufficiency. History of renal calculus. COMPARISON: 02/14/18 renal ultrasound and a 11/26/17 CT examination . FINDINGS: The lung bases are clear of any infiltrative process. The liver and spleen show no focal abnormalities. Pancreas region is unremarkable. Gallbladder is braulio ewhat contracted. Right and left adrenal glands are normal in appearance. The right and left kidneys are normal in size . No renal calculi are seen. Slight prominence to both right and left renal pelvis. No ureteral dilat ation. I see no evidence for a ureteral calculus. The left ureteral calculus noted on the prior exam is no longer seen. There are some small nonspecific periaortic and mesenteric lymph nodes which do not appear significan tly enlarged. Slightly more numerous than typically seen, but nonspecific. CT of pelvis was performed without contrast enhancement. No adenopathy, mass, or free fluid. Fat stra nding of the subcutaneous fat of the anterior abdominal wall is incidentally noted. IMPRESSION: No evidence of renal or ureteral calculi. Some minimal prominence to both the right and left collecti ng systems with fairly symmetric appearance. POS: [facility]
[2018-02-15] MEDS: Sodium Chloride 0.9% 1,000 ML IV SCH ×3 (16:31→21:20)
[2018-02-16 05:40] LABS: Albumin 4.2 g/dL (3.5-5.0); Anion Gap 16 mmol/L (10-20); BUN (Urea Nitrogen) 21 mg/dL (8.9-20.6); BUN/Creatinine Ratio 9.86; Calc. Creatinine Clearance 123 mL/min (70-130); Carbon Dioxide 22 mmol/L (22-29); Chloride 109 mmol/L (98-107); Estimated GFR-MDRD 38; Glucose 91 mg/dL (70-105); Phosphorus 4.4 mg/dL (2.3-4.7); Potassium 4.3 mmol/L (3.5-5.1); Sodium 143 mmol/L (136-145)
[2018-02-16] MEDS: Pantoprazole 40 MG VIAL IVP SCH (08:23)
[2018-02-16] MEDS: Sucralfate 1 GM TAB PO SCH ×4 (08:23→20:28)
[2018-02-16] MEDS: Cephalexin 250 MG CAP PO SCH ×2 (08:23→20:27)
[2018-02-16] MEDS: Sodium Chloride 0.9% 1,000 ML IV SCH ×3 (08:27→20:26)
[2018-02-16] MEDS: Heparin 5,000 UNITS/ML VIAL SC SCH ×2 (08:27→20:28)
--- NOTE | 2018-02-16 09:57 | PDOC.PN ---
- Subjective Encounter Start Date: 02/16/18 Encounter Start Time: 09:10 Patient seen and examined. No new complaints. No overnight events - Objective Resuscitation Status: Resuscitation Status FULL:Full Resuscitation MAR Reviewed: Yes Vital Signs & Weight: Vital Signs (12 hours) Temp Pulse Resp BP Pulse Ox 02/16/18 08:00 98.1 F 73 16 95 02/16/18 07:53 98.1 F 73 16 150/84 H 95 02/16/18 05:21 97.8 F 74 18 132/80 96 02/16/18 00:00 98.9 F 80 16 142/78 H 93 L Weight Admit Weight 360 lb Weight 360 lb 5 oz I&O: 02/15/18 02/16/18 02/17/18 06:59 06:59 06:59 Intake Total 3494 1221 Output Total 2130 1975 Balance 1364 -754 Result Diagrams: 02/15/18 03:21 02/16/18 04:15 Radiology Reviewed by me: Yes (CT sone protocol reviewed) Phys Exam - Physical Examination Constitutional: NAD HEENT: PERRLA, moist MMs, sclera anicteric Neck: no JVD, supple Respiratory: no wheezing, no rales, no rhonchi Cardiovascular: RRR, no significant murmur, no rub Gastrointestinal: soft, non-tender, no distention, positive bowel sounds Musculoskeletal: no edema, pulses present Neurological: non-focal, normal sensation, moves all 4 limbs Psychiatric: normal affect, A&O x 3 Skin: no rash, normal turgor Dx/Plan (1) Acute kidney failure Status: Acute Comment: slowly improving (2) Hydronephrosis, left Code(s): N13.30 - UNSPECIFIED HYDRONEPHROSIS Status: Ruled-out Comment: (3) Microscopic hematuria Code(s): R31.29 - OTHER MICROSCOPIC HEMATURIA Status: Acute (4) NSAID induced gastritis Code(s): K29.60 - OTHER GASTRITIS WITHOUT BLEEDING; T39.395A - ADVERSE EFFECT OF NONSTEROIDAL ANTI-INFLAMMATORY DRUGS, INIT Status: Acute (5) GERD (gastroesophageal reflux disease) Code(s): K21.9 - GASTRO-ESOPHAGEAL REFLUX DISEASE WITHOUT ESOPHAGITIS Status: Chronic (6) Morbid obesity with BMI of 45.0-49.9, adult Code(s): E66.01 - MORBID (SEVERE) OBESITY DUE TO EXCESS CALORIES; Z68.42 - BODY MASS INDEX (BMI) 45.0-49.9, ADULT Status: Chronic (7) Ureterolithiasis Code(s): N20.1 - CALCULUS OF URETER Status: Resolved - Plan cont current plan of care * today reduce IVF at 75 ml per hour * change protonix PO * medication reviewed as below * symptomatic treatment * repeat labs tomorrow * as needed BP meds and monitor. Review of Systems - Review of Systems Eyes: negative: Pain, Vision Change, Conjunctivae Inflammation, Eyelid Inflammation, Redness, Other ENT: negative: Ear Pain, Ear Discharge, Nose Pain, Nose Discharge, Nose Congestion, Mouth Pain, Mouth Swelling, Throat Pain, Throat Swelling, Other Respiratory: negative: Cough, Dry, Shortness of Breath, Hemoptysis, SOB with Excertion, Pleuritic Pain, Sputum, Wheezing Cardiovascular: negative: chest pain, palpitations, orthopnea, paroxysmal nocturnal dyspnea, edema, light headedness, other Gastrointestinal: negative: Nausea, Vomiting, Abdominal Pain, Diarrhea, Constipation, Melena, Hematochezia, Other Genitourinary: negative: Dysuria, Frequency, Incontinence, Hematuria, Retention , Other Musculoskeletal: negative: Neck Pain, Shoulder Pain, Arm Pain, Back Pain, Hand Pain, Leg Pain, Foot Pain, Other - Medications/Allergies Allergies/Adverse Reactions: Allergies Allergy/AdvReac Type Severity Reaction Status Date / Time carrot Allergy Verified 02/15/18 14:43 Medications: Current Medications Acetaminophen (Tylenol) 650 mg PO Q4H PRN PRN Reason: Headache/Fever or Pain Hydrocodone Bitart/Acetaminophen ([place] 5/325) 1 tab PO Q4H PRN PRN Reason: Moderate Pain (4-6) Al Hydroxide/Mg Hydroxide (Maalox) 30 ml PO Q6H PRN PRN Reason: Heartburn or Indigestion Last Admin: 02/15/18 10:03 Dose: 30 ml Artificial Tears (Tears Renewed 15ml Bottle) 0 drop EA EYE PRN PRN PRN Reason: Dry Eyes Cephalexin (Keflex) 500 mg PO BID [facility] Last Admin: 02/16/18 08:23 Dose: 500 mg Guaifenesin (Robitussin Sf) 200 mg PO Q4H PRN PRN Reason: Cough Heparin Sodium (Porcine) (Heparin) 5,000 units SC BID [facility] Last Admin: 02/16/18 08:27 Dose: Not Given Hydralazine HCl (Apresoline) 10 mg SLOW IVP Q4H PRN PRN Reason: Systolic BP > 180 Last Admin: 02/15/18 16:49 Dose: 10 mg Sodium Chloride (Normal Saline 0.9%) 1,000 mls @ 75 mls/hr IV .[id number] [facility] Last Admin: 02/16/18 08:27 Dose: Not Given Loperamide HCl (Imodium) 2 mg PO PRN PRN PRN Reason: Diarrhea/Loose Stools Loratadine (Claritin) 10 mg PO DAILYPRN PRN PRN Reason: Sinus Symptoms Magnesium Hydroxide (Milk Of Magnesium) 30 ml PO DAILYPRN PRN PRN Reason: Constipation Mineral Oil/White Petrolatum (Eucerin Cream) 0 gm TOP BIDPRN PRN PRN Reason: Dry Skin Ondansetron HCl (Zofran Odt) 4 mg PO Q6H PRN PRN Reason: Nausea/Vomiting Ondansetron HCl (Zofran) 4 mg IVP Q6H PRN PRN Reason: Nausea/Vomiting Last Admin: 02/14/18 20:23 Dose: 4 mg Pantoprazole Sodium (Protonix) 40 mg IVP Q12HR [facility] Last Admin: 02/16/18 08:23 Dose: 40 mg Phenol (Chloraseptic [place] 180 Ml Bot) 0 ml PO PRN PRN PRN Reason: Sore Throat Senna (Senokot) 2 tab PO HSPRN PRN PRN Reason: Constipation Sodium Chloride ([place] Nasal [place] 0.65%) 0 ml EA NARE QIDPRN PRN PRN Reason: Nasal Congestion Sucralfate (Carafate) 1 gm PO ACHS [facility] Last Admin: 02/16/18 08:23 Dose: 1 gm Zolpidem Tartrate (Ambien) 5 mg PO HSPRN PRN PRN Reason: Insomnia
--- NOTE | 2018-02-16 13:26 | PRG ---
DATE OF SERVICE: 02/16/2018 SUBJECTIVE: The patient is sleeping, awakens easily. Denies significant flank pain, nausea, vomiting or fever. Denies dysuria. PHYSICAL EXAMINATION: VITAL SIGNS: Stable. He is afebrile. I's and O's over 2 liters of urine in a 24-hour period, had a bowel movement. ABDOMEN: Soft, obese. No CVA tenderness appreciated. PERTINENT LABORATORY DATA: Creatinine today is 2.1; two days ago, presented with a creatinine of 2.5. His creatinine is improving with observation and IV fluids. Urine culture preliminary negative. UA demonstrating 11-20 RBCs, otherwise unremarkable. Initially presented with proteinuria, currently resolved. Follow up CT of the abdomen and pelvis stone protocol which I reviewed with Dr. Arevalo yesterday demonstrates no significant hydronephrosis. Resolution of his left ureteral calculi seen on prior CT from 12/04/2017. There is no significant obstructive component. Incidentally is minimal prominence of the bilateral renal pelvis without evidence of overt hydronephrosis. IMPRESSION AND PLAN: 1. Mr. Pugh is a 27-year-old male who presented with acute renal insufficiency, most likely due to high dose ibuprofen use. 2. Microscopic hematuria. History of left ureteral calculi, recent CT demonstrates resolution 3. Renal function improving with observation. From a urologic perspective, the patient can be discharged home. Recommend ongoing surveillance of his renal function, most likely will be followed by Nephrology. I will see the patient electively in few weeks. Due to microscopic hematuria, elective cystoscopy would be advised. The patient does relate that he would like to be sent home. I will leave this up to Nephrology and primary service. MOHAMUD
--- NOTE | 2018-02-16 13:33 | PRG ---
DATE OF SERVICE: 02/16/2018 SUBJECTIVE: This is a 27-year-old gentleman being seen for acute kidney injury. The patient denies any nausea, vomiting, or chest pain. PHYSICAL EXAMINATION: GENERAL: Patient is awake, alert. VITAL SIGNS: Afebrile, pulse 74, breathing 16, blood pressure 132/80. HEAD/NECK: Normocephalic. Atraumatic. EYES: EOMI. No deformity. EARS: Clear. No ulcers. NOSE: Intact. No lesions. MOUTH: Clear. No discharge. THROAT: Clear. No exudate. LUNGS: Clear. No crackles. CARDIAC: S1, S2. No rub. ABDOMEN: Benign. BS+. GENITALIA/RECTUM: Mccray absent. BACK/EXTREMITIES: Edema 0+ Ulcer- NEUROLOGICAL: Alert and motor intact. SKIN: Rash- Bruise- LYMPHATICS: Edema- Ulcer- LABORATORY DATA: Show creatinine 2.1. ASSESSMENT AND RECOMMENDATIONS: 1. Acute kidney injury, improved. 2. Hypertension, stable. 3. Anemia, stable. 4. Chronic kidney disease stage 3, stable. No indication for dialysis.
[2018-02-17 07:56] VITALS: BP 166/84; TEMP 98.1
[2018-02-17] MEDS: Heparin 5,000 UNITS/ML VIAL SC SCH (08:25)
[2018-02-17] MEDS: Sucralfate 1 GM TAB PO SCH (08:26)
[2018-02-17] MEDS: Cephalexin 250 MG CAP PO SCH (08:26)
[2018-02-17 08:27] LABS: Anion Gap 17 mmol/L (10-20); BUN (Urea Nitrogen) 18 mg/dL (8.9-20.6); Calc. Creatinine Clearance 155 mL/min (70-130); Calcium 9.3 mg/dL (7.8-10.44); Carbon Dioxide 18 mmol/L (22-29); Chloride 110 mmol/L (98-107); Estimated GFR-MDRD 50; Glucose 112 mg/dL (70-105); Sodium 141 mmol/L (136-145)
--- NOTE | 2018-02-17 10:21 | PRG ---
DATE OF SERVICE: 02/17/2018 SUBJECTIVE: The patient without flank pain, feels well. He has occasional lower abdominal discomfort with food; however, denies flank pain, dysuria or gross hematuria. PHYSICAL EXAMINATION: VITAL SIGNS: Stable, afebrile at 98.1, 69, 20, 96, 166/84. ABDOMEN: Soft, nontender, nondistended, no rigidity, no rebound, no suprapubic or CVA tenderness. LABORATORY DATA: Urine culture final negative. Repeat BMP this morning demonstrates creatinine improving with clinical observation of 1.68. He was admitted with creatinine of 2.5. IMPRESSION AND PLAN: 1. A 27-year-old male with history of morbid obesity. 2. Status post open reduction internal fixation of digits secondary to trauma. 3. History of left ureteral calculi, 12/04/[address] demonstrates resolution of ureteral calculi. No significant hydronephrosis. Mild prominence of the renal pelvises without hydronephrosis. 4. Acute renal insufficiency due to high Motrin use, resolving with clinical observation. 5. Microscopic hematuria. Elective cystoscopy. Informed patient and mother to call my office upon discharge to confirm follow-up appointment. No need for emergent or urgent cystoscopy. 6. Hypertension, currently on hydralazine. May be discharged when blood pressure is stable with p.o. meds. Recommend workup for hypertension which can be performed by primary or Nephrology as an outpatient. From a urologic perspective, the patient can be discharged home. We will sign off. 7. Left renal cyst, with no significant enhancement on CT with contrast back in November 2017. Possibility of small adjacent punctate calcification. Will survey. MOHAMUD
[2018-02-17] MEDS: Sodium Chloride 0.9% 1,000 ML IV SCH (10:51)
--- NOTE | 2018-02-17 10:57 | PDOC.PN ---
- Subjective Encounter Start Date: 02/17/18 Encounter Start Time: 08:50 Patient seen and examined. No new complaints. No overnight events - Objective Resuscitation Status: Resuscitation Status FULL:Full Resuscitation MAR Reviewed: Yes Vital Signs & Weight: Vital Signs (12 hours) Temp Pulse Resp BP Pulse Ox 02/17/18 08:00 98.1 F 69 20 02/17/18 07:55 98.1 F 69 20 166/84 H 96 02/17/18 06:17 168/82 H 02/17/18 04:59 97.8 F 66 18 160/102 H 93 L 02/17/18 00:35 97.4 F L 88 19 148/88 H 93 L Weight Admit Weight 360 lb Weight 360 lb 5 oz I&O: 02/16/18 02/17/18 02/18/18 06:59 06:59 06:59 Intake Total 1221 721 240 Output Total 1975 Balance -754 721 240 Result Diagrams: 02/15/18 03:21 02/17/18 07:50 Phys Exam - Physical Examination Constitutional: NAD HEENT: PERRLA, moist MMs, sclera anicteric Neck: no JVD, supple Respiratory: no wheezing, no rales, no rhonchi Cardiovascular: RRR, no significant murmur, no rub Gastrointestinal: soft, non-tender, no distention, positive bowel sounds Musculoskeletal: no edema, pulses present Neurological: non-focal, normal sensation, moves all 4 limbs Lymphatic: no nodes Psychiatric: normal affect, A&O x 3 Skin: no rash, normal turgor Dx/Plan (1) Acute kidney failure Status: Acute Comment: slowly improving (2) Hydronephrosis, left Code(s): N13.30 - UNSPECIFIED HYDRONEPHROSIS Status: Ruled-out Comment: (3) Microscopic hematuria Code(s): R31.29 - OTHER MICROSCOPIC HEMATURIA Status: Acute (4) NSAID induced gastritis Code(s): K29.60 - OTHER GASTRITIS WITHOUT BLEEDING; T39.395A - ADVERSE EFFECT OF NONSTEROIDAL ANTI-INFLAMMATORY DRUGS, INIT Status: Acute (5) GERD (gastroesophageal reflux disease) Code(s): K21.9 - GASTRO-ESOPHAGEAL REFLUX DISEASE WITHOUT ESOPHAGITIS Status: Chronic (6) Morbid obesity with BMI of 45.0-49.9, adult Code(s): E66.01 - MORBID (SEVERE) OBESITY DUE TO EXCESS CALORIES; Z68.42 - BODY MASS INDEX (BMI) 45.0-49.9, ADULT Status: Chronic (7) Ureterolithiasis Code(s): N20.1 - CALCULUS OF URETER Status: Resolved - Plan cont current plan of care * medication reviewed as below * symptomatic treatment * see discharge michelle. Review of Systems - Review of Systems Eyes: negative: Pain, Vision Change, Conjunctivae Inflammation, Eyelid Inflammation, Redness, Other ENT: negative: Ear Pain, Ear Discharge, Nose Pain, Nose Discharge, Nose Congestion, Mouth Pain, Mouth Swelling, Throat Pain, Throat Swelling, Other Respiratory: negative: Cough, Dry, Shortness of Breath, Hemoptysis, SOB with Excertion, Pleuritic Pain, Sputum, Wheezing Cardiovascular: negative: chest pain, palpitations, orthopnea, paroxysmal nocturnal dyspnea, edema, light headedness, other Gastrointestinal: negative: Nausea, Vomiting, Abdominal Pain, Diarrhea, Constipation, Melena, Hematochezia, Other Genitourinary: negative: Dysuria, Frequency, Incontinence, Hematuria, Retention , Other Musculoskeletal: negative: Neck Pain, Shoulder Pain, Arm Pain, Back Pain, Hand Pain, Leg Pain, Foot Pain, Other Skin: negative: Rash, Lesions, [place], Bruising, Other - Medications/Allergies Allergies/Adverse Reactions: Allergies Allergy/AdvReac Type Severity Reaction Status Date / Time carrot Allergy Verified 02/15/18 14:43 Medications: Current Medications Acetaminophen (Tylenol) 650 mg PO Q4H PRN PRN Reason: Headache/Fever or Pain Last Admin: 02/16/18 21:26 Dose: 650 mg Hydrocodone Bitart/Acetaminophen ([place] 5/325) 1 tab PO Q4H PRN PRN Reason: Moderate Pain (4-6) Al Hydroxide/Mg Hydroxide (Maalox) 30 ml PO Q6H PRN PRN Reason: Heartburn or Indigestion Last Admin: 02/15/18 10:03 Dose: 30 ml Artificial Tears (Tears Renewed 15ml Bottle) 0 drop EA EYE PRN PRN PRN Reason: Dry Eyes Cephalexin (Keflex) 500 mg PO BID [facility] Last Admin: 02/17/18 08:26 Dose: 500 mg Guaifenesin (Robitussin Sf) 200 mg PO Q4H PRN PRN Reason: Cough Heparin Sodium (Porcine) (Heparin) 5,000 units SC BID [facility] Last Admin: 02/17/18 08:25 Dose: Not Given Hydralazine HCl (Apresoline) 10 mg SLOW IVP Q4H PRN PRN Reason: Systolic BP > 180 Last Admin: 02/15/18 16:49 Dose: 10 mg Sodium Chloride (Normal Saline 0.9%) 1,000 mls @ 75 mls/hr IV .[id number] [facility] Last Admin: 02/17/18 10:51 Dose: Not Given Loperamide HCl (Imodium) 2 mg PO PRN PRN PRN Reason: Diarrhea/Loose Stools Loratadine (Claritin) 10 mg PO DAILYPRN PRN PRN Reason: Sinus Symptoms Magnesium Hydroxide (Milk Of Magnesium) 30 ml PO DAILYPRN PRN PRN Reason: Constipation Mineral Oil/White Petrolatum (Eucerin Cream) 0 gm TOP BIDPRN PRN PRN Reason: Dry Skin Ondansetron HCl (Zofran Odt) 4 mg PO Q6H PRN PRN Reason: Nausea/Vomiting Ondansetron HCl (Zofran) 4 mg IVP Q6H PRN PRN Reason: Nausea/Vomiting Last Admin: 02/14/18 20:23 Dose: 4 mg Pantoprazole Sodium (Protonix) 40 mg PO BID [facility] Last Admin: 02/17/18 08:26 Dose: 40 mg Phenol (Chloraseptic [place] 180 Ml Bot) 0 ml PO PRN PRN PRN Reason: Sore Throat Senna (Senokot) 2 tab PO HSPRN PRN PRN Reason: Constipation Last Admin: 02/16/18 21:27 Dose: 2 tab Sodium Chloride ([place] Nasal [place] 0.65%) 0 ml EA NARE QIDPRN PRN PRN Reason: Nasal Congestion Sucralfate (Carafate) 1 gm PO [facility] Last Admin: 02/17/18 08:26 Dose: 1 gm Zolpidem Tartrate (Ambien) 5 mg PO HSPRN PRN PRN Reason: Insomnia
--- NOTE | 2018-02-17 11:28 | PRG ---
DATE OF SERVICE: 02/17/2018 SUBJECTIVE: This is a 27-year-old gentleman being seen for acute kidney injury. The patient denies any nausea, vomiting, or chest pain. PHYSICAL EXAMINATION: GENERAL: Patient is awake, alert. VITAL SIGNS: Afebrile, pulse 75, breathing 16, blood pressure is 160/102. OBJECTIVE: See above. Awake, alert, in no acute distress. GENERAL APPEARANCE AND MENTAL STATUS: Fair. HEAD/NECK: Normocephalic. Atraumatic. EYES: EOMI. No deformity. EARS: Clear. No ulcers. NOSE: Intact. No lesions. MOUTH: Clear. No discharge. THROAT: Clear. No exudate. LUNGS: Clear. No crackles. CARDIAC: S1, S2. No rub. ABDOMEN: Benign. BS+. GENITALIA/RECTUM: Mccray absent. BACK/EXTREMITIES: Edema 0+ Ulcer- NEUROLOGICAL: Alert and motor intact. SKIN: Rash- Bruise- LYMPHATICS: Edema- Ulcer- LABORATORY: Hemoglobin 13.7, creatinine 1.6. ASSESSMENT AND RECOMMENDATIONS: 1. Acute kidney injury, improved. 2. Chronic kidney disease stage 3, stable. 3. Hypertension, stable. 4. Anemia, stable. 5. Proteinuria, not present. I will order a 24-hour urine studies. All the above findings were discussed with the patient and all questions were answered.
--- NOTE | 2018-02-17 12:01 | DIS ---
PRIMARY CARE PHYSICIAN: Dr. Robin Reynolds. DATE OF ADMISSION: 02/14/2018 DATE OF DISCHARGE: 02/17/2018 DISCHARGE DISPOSITION: Home. PRIMARY DISCHARGE DIAGNOSES: NSAID induced acute kidney failure, NSAID induced gastritis, microscopi c hematuria. SECONDARY DISCHARGE DIAGNOSES: Morbid obesity with body mass index 47, gastroesophageal reflux disea se, history of ureterolithiasis, and hydronephrosis. PRIMARY PROCEDURE/OPERATION: None. RADIOLOGICAL INVESTIGATION: Renal ultrasound showed left hydronephrosis. A CT stone protocol was ne gative for any hydronephrosis. SIGNIFICANT LABORATORY DATA: WBC 5.0, hemoglobin 13.7, platelet 126. Sodium 141, creatinine 1.68. LFT normal. Urinalysis showed microscopic hematuria. Stool for guaiac negative. Urine culture nega tive. DISCHARGE MEDICATIONS: Protonix 40 mg p.o. daily. CONTRAINDICATIONS: None. CODE STATUS: FULL CODE. INPATIENT CONSULTANTS: Dr. Byrd was following while in hospital. Dr. Johnson was consulted for suspected left hydronephrosis. TEST RESULTS PENDING ON DISCHARGE: None. ALLERGIES: CARROTS. DISCHARGE PLAN: Post hospital, the patient will follow up with Dr. Byrd, Dr. Johnson, and [facility] physician as instructed. HOSPITAL COURSE: A 27-year-old male, who had recently had surgery by Dr. Toro. Subsequently, e patient was given a Keflex as well as high dose of ibuprofen. The patient was taking at home high dose of ibuprofen that is why he developed epigastric abdominal pain and he was having poor appetite. He also developed acute kidney failure. He was brought to emergency room because he was not feelin g good. He had negative stool for guaiac and his H&H stable and that is why we did not put a consult for GI as there was no alarming symptoms. We treated him with IV Protonix while in hospital and he had significant improvement in his gastritis. Upon discharge, we changed to p.o. Protonix as well. His gastritis was related with NSAID. The patient also developed acute kidney failure. We treated him with IV fluid. We discontinued all kind of NSAID and we educated the patient to avoid NSAIDs in the future. Dr. Byrd was following whil e in hospital. His renal function smoothly improving. This patient has a recent history of ureterolithiasis and hydronephrosis and renal ultrasound did [place] w some mild left hydronephrosis and that is why we consulted urologist and they did CT stone protocol , which was negative for any ureterolithiasis or any hydronephrosis. The patient has microscopic hem aturia and that is why he will need outpatient Urology followup for possible cystoscopic evaluation. He will follow up with Dr. Byrd and primary care physician. While in hospital, the patient had a hi gh blood pressure, but we did not start antihypertensive medication. We advised this patient to keep checking blood pressure at home situation and if blood pressure remains more than 130/80 then he nee ds to follow up with primary care physician for starting antihypertensive medication and patient agre ed with this plan. Overall, patient is medically stable for discharge. The patient is seen and exam ined at bedside today. Please see my progress note from today for further detail.
== END 2018-02-17 11:00 | disposition home or self-care (01) | DRG 683 ==
LOC: ERS 03:49 → T4-A 05:45
PROVIDERS: ADMIT Hospitalist; ATTEND Hospitalist
DX: N17.9 Acute kidney failure, unspecified (principal); Z68.42 Body mass index [BMI] 45.0-49.9, adult; E66.01 Morbid (severe) obesity due to excess calories; K21.9 Gastro-esophageal reflux disease without esophagitis; I12.9 Hypertensive chronic kidney disease with stage 1 through stage 4 chronic kidney disease, or unspecified chronic kidney disease; N18.3 Chronic kidney disease, stage 3 (moderate); D64.9 Anemia, unspecified; T39.395A Adverse effect of other nonsteroidal anti-inflammatory drugs [NSAID], initial encounter; N13.30 Unspecified hydronephrosis; N20.0 Calculus of kidney; E86.0 Dehydration
CPT/HCPCS: 36415; 74176; 76770; 80048; 80053; 80069; 81003; 81015; 82274; 82550; 82570; 83036; 83690; 83735; 84156; 84300; 84540; 85025; 87086; 96361; 96374; C9113; J0360; J1644; J2405; S0028

== ENCOUNTER 2018-03-26 12:57 | Outpatient (CLI) | payer BC ==
[2018-03-26] MEDS ORDERED: Iopamidol 300 61% 100 ML VIAL FS ONE (12:59)
--- NOTE | 2018-03-26 15:59 | RAD ---
IVP: HISTORY: A 27-year-old male with a history of kidney stones, acute kidney injury. FINDINGS: Cfa film reveals no overt opaque calculi. Following contrast injection, there is prompt bilateral excretion. Visualized renal outlines and upper collecting systems are unremarkable. No evidence for hydronephrosis. The bladder appears unremarkable. No significant post void residual. IMPRESSION: Unremarkable intravenous pyelogram. There is note incidentally of some bilateral hip joint early deg enerative change and possible findings of femoral acetabular impingement. If the patient does compla in of hip pain, consider nonemergent followup MRI study for further assessment. POS: ANNMARIE
== END 2018-03-26 12:58 | disposition home or self-care (01) ==
LOC: RAD 12:57
PROVIDERS: ATTEND Urology
DX: N17.9 Acute kidney failure, unspecified (principal); E66.9 Obesity, unspecified; Z87.442 Personal history of urinary calculi
CPT/HCPCS: 74410